=== PATIENT | male | born 1965 | race Caucasian/White ===

== ENCOUNTER 2022-06-30 09:29 | Emergency (ER) | payer OTHER ==
[~2022-06-30] VITALS: Ht 172.7 cm; Wt 79.4 kg
--- NOTE | 2022-06-30 09:33 | NUR ---
Patient to ER bed 08 to gown for evaluation. Side rails up.
[2022-06-30 09:37] VITALS: BP_SYST 183
--- NOTE | 2022-06-30 10:00 | NUR ---
PATIENT AAOX4 AMBULATORY TO ER C/O RIGHT EAR PAIN, SWOLLEN AND UNABLE TO OPEN MOUTH, PLACE IN ROOM 8, AWAITING FOR EDP TO SEE PATIENT.
[2022-06-30] MEDS ORDERED: LIDOCAINE MPF 1% 50 MG/5 ML AMP INJ ONE (12:00)
[2022-06-30] MEDS ORDERED: LIDOCAINE 1%, 20 ML MDV 20 ML ONE (12:18)
--- NOTE | 2022-06-30 12:21 | NUR ---
PATIENT IN BED EDP SEEN PATIENT, FOR I&D.
--- NOTE | 2022-06-30 12:30 | NUR ---
MD BERGERON SEEN PATIENT AND COMPLETED I&D
[2022-06-30] MEDS ORDERED: SULF1TAB48 PO (12:55)
--- NOTE | 2022-06-30 13:00 | NUR ---
Patient given written and verbal discharge instructions and verbalizes understanding. ER MD discussed with patient the results and treatment provided. Patient in stable condition. ID arm band removed. Rx of given. Patient educated on pain management and to follow up with PMD. Opportunity for questions provided and answered. Medication side effect fact sheet provided.
== END 2022-06-30 13:00 | disposition home or self-care (01) ==
LOC: SED 09:29
DX: H66.41 Suppurative otitis media, unspecified, right ear (principal); Z79.899 Other long term (current) drug therapy
CPT/HCPCS: 69000; 99282; J2001